=== PATIENT | female | born 1965 | race Hispanic/Latino ===

== ENCOUNTER 2018-08-22 14:19 | Inpatient (IN) | payer SELFPAY ==
[2018-08-22] VITALS (8 sets, daily range): BP systolic 109–133; BP diastolic 48–66
[~2018-08-22] VITALS: Ht 152.4 cm; Wt 76.2 kg
[2018-08-22 15:20] LABS: BASOPHILS % (AUTO) 0.7 % (0.0-5.0); EOSINOPHILS % (AUTO) 0.4 % (0.0-8.0); MEAN CORPUSCULAR HEMOGLOBIN 27.2 pg (27.0-33.0); MEAN CORPUSCULAR HGB CONC 31.4 g/dL (32.0-36.0); MEAN CORPUSCULAR VOLUME 86.4 fL (79-99); MONOCYTES % (AUTO) 6.5 % (3.0-13.0); NEUTROPHILS % (AUTO) 82.4 % (40.0-77.0); NUCLEATED RED BLOOD CELLS 0.1 % (0.0-0.19); PLATELET COUNT (AUTO) 390 K/uL (130-400); RED BLOOD CELL COUNT(AUTO) 2.25 MIL/uL (4.00-5.50); RED CELL DISTRIBUTION WIDTH 15.9 % (11.0-15.5); WHITE BLOOD COUNT (AUTO) 11.7 K/uL (4.8-10.8)
[2018-08-22 15:30] LABS: INR 0.94 (0.85-1.15); PARTIAL THROMBOPLASTIN TIME 18.9 SEC (26.3-35.5); PROTHROMBIN TIME 9.9 SEC (9.6-11.6)
[2018-08-22 15:31] LABS: CREATININE 0.8 mg/dL (0.5-1.5); POTASSIUM 3.5 mmol/L (3.5-5.1)
[2018-08-22 15:34] LABS: ALBUMIN 3.4 g/dL (3.5-5.0); BILIRUBIN,TOTAL 0.2 mg/dL (0.2-1.0); TOTAL PROTEIN, SERUM 7.1 g/dL (6.0-8.3)
[2018-08-22 15:38] LABS: HEMATOCRIT 19.5 % (36-48)
[2018-08-22] MEDS ORDERED: ACETAMINOPHEN 325 MG TAB PO PRN (17:00)
[2018-08-22] MEDS ORDERED: ONDANSETRON HCL 4 MG/2 ML VIAL IVP PRN (17:00)
[2018-08-22] MEDS ORDERED: MEDROXYPROGESTERONE ACET 5 MG TAB PO SCH (17:00)
[2018-08-22] MEDS ORDERED: IBUPROFEN 600 MG TABLET PO PRN (17:00)
[2018-08-22] MEDS ORDERED: DiphenhydrAMINE HCL 50 MG/ML VIAL IVP PRN (17:00)
[2018-08-22] MEDS ORDERED: LISI10TA7 PO (18:48)
--- NOTE | 2018-08-22 20:00 | NUR ---
PROCEDURE TRANSVAGINAL EXAM IN PROGRESS, PT HAS BEEN ASSISTED TO BR TO VOID W/O ANY COMPLAINTS, SCANT VAGINAL BLEEDING NOTED, ENCOURAGED TO PUSH FLUIDS Addendum: 08/22/18 at 2209 by AHMET OROURKE LVN Amended: Links added.
--- NOTE | 2018-08-22 20:20 | NUR ---
BLOOD TRANSFUSION V/S WNL, PT ADVISED TO CALL NURSE FOR ANY ADVERSE REACTIONS, ACKNOWLEDGES UNDERSTANDING Addendum: 08/22/18 at 2213 by AHMET OROURKE LVN Amended: Links added.
[2018-08-22] MEDS: LACTATED RINGERS 1000ML 1,000 ML IV SCH (23:40)
[2018-08-23] MEDS: LACTATED RINGERS 1000ML 1,000 ML IV SCH ×3 (00:34→13:00)
[2018-08-23 01:00] VITALS: BP 124/73
--- NOTE | 2018-08-23 01:15 | NUR ---
ACTIVITY ASSISTED UP TO BR TO VOID, TOLERATED WELL, NO C/O DIZZINESS, BLOOD TRANSFUSION COMPLETE Addendum: 08/23/18 at 0131 by AHMET OROURKE LVN Amended: Links added.
--- NOTE | 2018-08-23 01:15 | NUR ---
VAGINAL BLEEDING PAD HAD SCANT AMT PINKISH BLOOD, URINE RED, BLOODY Addendum: 08/23/18 at 0143 by AHMET OROURKE LVN Amended: Links added.
[2018-08-23 03:23] VITALS: BP 131/72
[2018-08-23 03:25] LABS: HEMATOCRIT 24.7 % (36-48)
--- NOTE | 2018-08-23 04:00 | NUR ---
DENIS report received from Reyes Benson LVN. Addendum: 08/23/18 at 0504 by JEN MUHAMMAD RN RN Amended: Links added.
--- NOTE | 2018-08-23 04:35 | NUR ---
Pt to bathroom, voiding without pain or discomfort; urine pink tinged; tamela pad noted with scant bleeding. Pt providing self tamela care then returning to bed; denies dizziness, weakness or discomfort. Pt requesting jello after eating half of sandwich provided; denies n/v at present. Addendum: 08/23/18 at 0509 by JEN MUHAMMAD RN RN Amended: Links added.
[2018-08-23 08:15] VITALS: BP 126/71
--- NOTE | 2018-08-23 08:15 | NUR ---
PAD COUNT PT CHANGED PAD AFTER VOIDING, SCANT BLOOD NOTED ON PAD, WILL CONTINUE TO MONITOR Addendum: 08/23/18 at 1022 by RACHEL JARA RN Amended: Links added.
--- NOTE | 2018-08-23 08:20 | NUR ---
ACTIVITY PT WAS ABLE TO AMBULATE TO BATHROOM, MINIMAL ASSISTANCE NEEDED; DID OWN CHARO-CARE, WAS ABLE TO VOID, AMBULATED BACK TO BED, TOLERATED WELL
[2018-08-23] MEDS ORDERED: MEDROXYPROGESTERONE ACET 5 MG TAB PO SCH (10:30)
--- NOTE | 2018-08-23 11:35 | NUR ---
ACTIVITY PT AMBULATED TO BATHROOM, NO ASSISTANCE NEEDED BUT NEAR PT, PT WAS ABLE TO VOID 400+mL OF CLEAR PALE YELLOW URINE, WASHED HANDS, WAS ABLE TO AMBULATE BACK TO BED, NO DIZZINESS, FATIGUE NOTED, NO SOB; PT FEELS WELL, NO C/O PAIN
--- NOTE | 2018-08-23 11:36 | NUR ---
PAD PT DID NOT CHANGE PAD SINCE HAD SMALL SPOT ONLY TO PAD, WILL CONTINUE TO MONITOR
[2018-08-23 11:58] VITALS: BP 126/63
--- NOTE | 2018-08-23 13:00 | NUR ---
ROUNDS DR Phillip ASHTON AT BEDSIDE, ANSWERED ALL PT'S QUESTIONS AND CONCERNS; POC DISCUSSED, PT VERBALIZED UNDERSTANDING
--- NOTE | 2018-08-23 15:15 | NUR ---
DISCHARGE PT STABLE, NO PAIN, NO COMPLAINTS; PT LEFT UNIT, VIA WHEELCHAIR, ACCOMPANIED BY RN AND FAMILY MEMBERS CARRYING ALL PERSONAL BELONGINGS, INSTRUCTIONS, AND PRESCRIPTION; PT LEFT FACILITY IN PERSONAL VEHICLE
== END 2018-08-23 15:15 | disposition home or self-care (01) | DRG 761 ==
LOC: EDH 14:19 → EDHIP 16:40 → WSH 17:45
PROVIDERS: ADMIT Internal Medicine; ATTEND Internal Medicine
PROC: 30233N1 Transfusion of Nonautologous Red Blood Cells into Peripheral Vein, Percutaneous Approach (ICD-10-PCS; principal; 2018-08-22)
DX: N92.0 Excessive and frequent menstruation with regular cycle (principal); I10 Essential (primary) hypertension; D50.0 Iron deficiency anemia secondary to blood loss (chronic)
CPT/HCPCS: 36415; 36430; 71046; 76830; 80053; 81025; 82550; 84484; 85014; 85018; 85025; 85610; 85730; 86850; 86900; 86901; 86922; 93005; G0378; J7030; J7120; P9016

== ENCOUNTER 2018-08-29 11:32 | Inpatient (IN) | payer SELFPAY ==
[~2018-08-29] VITALS: Ht 152.4 cm; Wt 74.4 kg
[~2018-08-29 11:32] MED LIST: LISI10TA7 PO
[2018-08-29 12:29] LABS: BASOPHILS % (AUTO) 0.8 % (0.0-5.0); EOSINOPHILS % (AUTO) 0.2 % (0.0-8.0); HEMATOCRIT 30.5 % (36-48); LYMPHOCYTES % (AUTO) 5.7 % (21.0-51.0); MEAN CORPUSCULAR HEMOGLOBIN 27.3 pg (27.0-33.0); MEAN CORPUSCULAR HGB CONC 31.2 g/dL (32.0-36.0); MEAN CORPUSCULAR VOLUME 87.6 fL (79-99); MONOCYTES % (AUTO) 5.5 % (3.0-13.0); NEUTROPHILS % (AUTO) 87.8 % (40.0-77.0); PLATELET COUNT (AUTO) 278 K/uL (130-400); RED BLOOD CELL COUNT(AUTO) 3.48 MIL/uL (4.00-5.50); RED CELL DISTRIBUTION WIDTH 17.5 % (11.0-15.5); WHITE BLOOD COUNT (AUTO) 14.1 K/uL (4.8-10.8)
[2018-08-29 12:40] LABS: CREATININE 0.8 mg/dL (0.5-1.5); POTASSIUM 3.7 mmol/L (3.5-5.1)
[2018-08-29 12:42] LABS: ALBUMIN 3.6 g/dL (3.5-5.0); BILIRUBIN,TOTAL 0.2 mg/dL (0.2-1.0); TOTAL PROTEIN, SERUM 7.2 g/dL (6.0-8.3)
[2018-08-29 12:45] LABS: APPEARANCE,URINE TURBID (CLEAR); BILIRUBIN,URINE NEGATIVE (NEGATIVE); COLOR,URINE RED (YELLOW); GLUCOSE, URINE (UA) NEGATIVE (NEGATIVE); KETONES,URINE NEGATIVE (NEGATIVE); LEUKOCYTE ESTERASE ,URINE NEGATIVE (NEGATIVE); NITRATE,URINE NEGATIVE (NEGATIVE); OCCULT BLOOD,URINE LARGE (NEGATIVE); PROTEIN,URINE >=300 mg/dL (NEGATIVE); UROBILINOGEN,URINE 0.2 mg/dL (0.2-1.0)
[2018-08-29 12:58] LABS: BACTERIA,URINE Rare /HPF (None Seen); RBC,URINE TNTC /HPF (0-1); SQUAMOUS EPITHELIAL CELL,UR None Seen /HPF (0-2); WBC,URINE 0-1 /HPF (0-1)
[2018-08-29 13:31] LABS: INR 1.01 (0.85-1.15); PARTIAL THROMBOPLASTIN TIME 21.9 SEC (26.3-35.5); PROTHROMBIN TIME 10.6 SEC (9.6-11.6)
[2018-08-29 13:41] LABS: BASOPHILS % (AUTO) 0.5 % (0.0-5.0); HEMATOCRIT 28.3 % (36-48); LYMPHOCYTES % (AUTO) 7.1 % (21.0-51.0); MEAN CORPUSCULAR HEMOGLOBIN 27.5 pg (27.0-33.0); MEAN CORPUSCULAR HGB CONC 31.6 g/dL (32.0-36.0); MEAN CORPUSCULAR VOLUME 87.2 fL (79-99); MONOCYTES % (AUTO) 6.9 % (3.0-13.0); NEUTROPHILS % (AUTO) 85.5 % (40.0-77.0); NUCLEATED RED BLOOD CELLS 0.1 % (0.0-0.19); PLATELET COUNT (AUTO) 251 K/uL (130-400); RED BLOOD CELL COUNT(AUTO) 3.25 MIL/uL (4.00-5.50); RED CELL DISTRIBUTION WIDTH 18.1 % (11.0-15.5); WHITE BLOOD COUNT (AUTO) 14.6 K/uL (4.8-10.8)
[2018-08-29 16:45] VITALS: BP 105/51
--- NOTE | 2018-08-29 16:45 | NUR ---
REPORT RECIEVED FROM CONOR HENRQIUEZ IN ER AND PATIENT TRANSFERED VIA STRETCHER TO ROOM. PATIENT ORIENTED TO UNIT AND PIV INFUSING WITH NS AT 150CC/HR. PATIENT VOIDED ON ADMISSION 450CC OF DARK RED BLOOD WITH URINE. PATIENT WAS GIVEN CHARO PADS AND INFORMED TO VOID IN CONTAINER TO MONITOR VAGINAL BLEEDING AND DO PAD COUNT.
--- NOTE | 2018-08-29 18:30 | NUR ---
HISTORY OBTAINED AND PATIENT DENIES PAIN AT THIS TIME AND VERBALIZES FEELING OKAY. PIV INFUSING WELL AND IS PATENT. NO EDEMA OR LEAKAGE NOTED.
[2018-08-29 20:17] VITALS: BP 95/39
[2018-08-29 20:20] VITALS: BP 100/47
[2018-08-29 20:40] VITALS: BP 100/57
[2018-08-29 21:15] VITALS: BP 101/55
[2018-08-29] MEDS: FAMOTIDINE/PF 20 MG/2 ML VIAL IV SCH (21:50)
[2018-08-29] MEDS: SODIUM CHLORIDE 0.9% 1000ML 1,000 ML IV SCH ×2 (22:16→22:44)
[2018-08-30] VITALS (21 sets, daily range): BP systolic 97–129; BP diastolic 51–89
--- NOTE | 2018-08-30 00:05 | NUR ---
Communication: Uvaldo Bowden NP called via telephone informed that patient's Blood Pressure is low 100/47, 95/39, latest 96/50, Hemoglobin and hematocrit 7.5 and hematocrit of 24.0; received orders to give bolus 500 ml of NS. Observe patient and call if next hemoglobin level is low. NS bolus of 500 ml NS started.
[2018-08-30] MEDS ORDERED: SODIUM CHLORIDE 0.9% 500ML 500 ML IV ONE (00:15)
--- NOTE | 2018-08-30 00:15 | NUR ---
Charles Jorge RN called: Charles Jorge RN Charges called informed that she talks to Dr. Coles about a consult order for this patient Rodriguez and claimed that he knew her. No order given.
--- NOTE | 2018-08-30 00:59 | NUR ---
NS: NS 500 ml bolus done. Rate regulated back to 150 ml/hour.
[2018-08-30] MEDS: SODIUM CHLORIDE 0.9% 1000ML 1,000 ML IV SCH ×2 (03:17→14:21)
--- NOTE | 2018-08-30 07:05 | NUR ---
DR. NISREEN ZELAYA AT BEDSIDE TO ASSESS AND TALK TO PT. VAGINAL EXAM DONE. POC DISCUSSED AND PT VERBALIZED UNDERSTANDING. NEW ORDERS RECEIVED.
[2018-08-30] MEDS ORDERED: ONDANSETRON HCL MDV 20ML 2 MG/ML VIAL IVP PRN (08:00)
[2018-08-30] MEDS ORDERED: ACETAMINOPHEN EXTRA STRENGTH 500 MG TABLET PO PRN (08:00)
--- NOTE | 2018-08-30 08:00 | NUR ---
DR. OWENS AT BEDSIDE TO ASSESS AND TALK TO PT. NEW ORDERS RECEIVED.
[2018-08-30 08:21] LABS: HEMATOCRIT 25.1 % (36-48)
[2018-08-30] MEDS: FAMOTIDINE/PF 20 MG/2 ML VIAL IV SCH (08:37)
[2018-08-30] MEDS ORDERED: ONDANSETRON HCL 4 MG/2 ML VIAL IVP PRN (08:45)
--- NOTE | 2018-08-30 09:25 | NUR ---
1ST UNIT OF PRBC'S STARTED AT THIS TIME.
--- NOTE | 2018-08-30 11:30 | NUR ---
1ST UNIT OF PRBC'S COMPLETED. PT TAKEN BY BED TO HOLDING AREA FOR PROCEDURE.
[2018-08-30] MEDS ORDERED: LACTATED RINGERS 1000ML 1,000 ML IV ONE (11:39)
[2018-08-30] MEDS ORDERED: SUCCINYLCHOLINE 200MG/10ML SYR ONE (11:44)
[2018-08-30] MEDS ORDERED: LIDOCAINE PF 2% 5ML ABBOJECT ONE (11:44)
[2018-08-30] MEDS ORDERED: DEXAMETHASONE SOD PHOSPHATE 10MG/ML 1ML VIAL ONE (11:44)
[2018-08-30] MEDS ORDERED: ONDANSETRON HCL 4 MG/2 ML VIAL ONE (11:46)
[2018-08-30] MEDS ORDERED: ROCURONIUM 10MG/1ML SYR 10 MG/ML ML ONE (11:46)
[2018-08-30] MEDS ORDERED: MIDAZOLAM HCL 1 MG/ML 2ML VIAL ONE (11:46)
[2018-08-30] MEDS ORDERED: NEOSTIGMINE 5MG/5ML SYR IV ONE (11:46)
[2018-08-30] MEDS ORDERED: PROPOFOL 10 MG/ML 20ML VIAL IV ONE ×2 (11:46→12:42)
[2018-08-30] MEDS ORDERED: GLYCOPYRROLATE 1 MG/5 ML SYRINGE ONE (11:46)
[2018-08-30] MEDS ORDERED: FENTANYL CITRATE PF 50 MCG/1 ML 2ML VIAL ONE (11:47)
--- NOTE | 2018-08-30 13:51 | NUR ---
CM CHART REVIEW. NO TRIGGERS TO CM. AVAILABLE FOR CM IA IF TRIGGERS OR CONCNERS Addendum: 08/30/18 at 1352 by YOUNG PEARL RN CM Amended: Links added.
[2018-08-30] MEDS ORDERED: MEDR10TA PO (16:07)
[2018-08-30] MEDS ORDERED: IBUP-2697 PO (16:07)
[2018-08-30] MEDS ORDERED: FERR-63 PO (16:07)
[2018-08-30 16:34] LABS: HEMATOCRIT 27.4 % (36-48)
--- NOTE | 2018-08-30 19:10 | NUR ---
DISCHARGE PT LEFT UNIT VIA WHEELCHAIR, ACCOMPANIED BY FAMILY. DENIED PAIN AND HAD NO COMPLAINTS. TRANSPORTED BY PERSONAL VEHICLE.
== END 2018-08-30 19:10 | disposition home or self-care (01) | DRG 744 ==
LOC: EDH 11:32 → OBSVTOIN 11:33 → EDHIP 11:33 → WSH 16:45
PROVIDERS: ADMIT Internal Medicine; ATTEND Internal Medicine
PROC: 0UDB8ZZ Extraction of Endometrium, Via Natural or Artificial Opening Endoscopic (ICD-10-PCS; principal; 2018-08-30 12:31)
PROC: 30233N1 Transfusion of Nonautologous Red Blood Cells into Peripheral Vein, Percutaneous Approach (ICD-10-PCS; 2018-08-30 12:31)
DX: N85.2 Hypertrophy of uterus (principal); D62 Acute posthemorrhagic anemia; N92.0 Excessive and frequent menstruation with regular cycle; I10 Essential (primary) hypertension; I95.9 Hypotension, unspecified; T46.4X5A Adverse effect of angiotensin-converting-enzyme inhibitors, initial encounter; Z82.49 Family history of ischemic heart disease and other diseases of the circulatory system; Y92.89 Other specified places as the place of occurrence of the external cause
CPT/HCPCS: 36415; 36430; 80053; 81001; 81025; 83690; 84484; 85014; 85018; 85025; 85610; 85730; 86850; 86900; 86901; 86922; 93005; 99291; A4351; G0378; J0330; J1100; J2001; J2250; J2405; J2704; J2710; J3010; J3490; J7030; J7040; J7120; P9016

== ENCOUNTER 2024-02-07 15:43 | Emergency (ER) | payer SELFPAY ==
[~2024-02-07] VITALS: Ht 157.5 cm; Wt 77.1 kg
[~2024-02-07 15:43] MED LIST changes: +FERR-63 PO; +IBUP-2697 PO; -LISI10TA7 PO; +MEDR10TA PO
[2024-02-07 15:46] VITALS: BP 155/81; PULSE 97; RESP 18; TEMP 98.3; O2SAT 98
[2024-02-07 18:13] LABS: APPEARANCE,URINE CLEAR (CLEAR); BILIRUBIN,URINE NEGATIVE (NEGATIVE); COLOR,URINE LIGHT-YELLOW (YELLOW); GLUCOSE, URINE (UA) NEGATIVE (NEGATIVE); KETONES,URINE NEGATIVE (NEGATIVE); LEUKOCYTE ESTERASE ,URINE NEGATIVE Leu/uL (NEGATIVE); NITRATE,URINE NEGATIVE (NEGATIVE); OCCULT BLOOD,URINE NEGATIVE (NEGATIVE); PROTEIN,URINE 10 mg/dL (NEGATIVE)
[2024-02-07 18:16] LABS: ADD UA MICROSCOPIC YES
[2024-02-07 18:23] LABS: BACTERIA,URINE RARE /HPF (None Seen); MUCUS,URINE RARE LPF (None Seen); SQUAMOUS EPITHELIAL CELL,UR RARE /HPF (0-2); WBC,URINE 0-1 /HPF (0-1)
== END 2024-02-07 19:08 | disposition home or self-care (01) ==
LOC: EDH 15:43
DX: I83.891 Varicose veins of right lower extremity with other complications (principal); R30.0 Dysuria; Z79.899 Other long term (current) drug therapy
CPT/HCPCS: 81001